=== PATIENT | female | born 1940 | race Caucasian/White ===

== ENCOUNTER → 2016-06-15 | Outpatient (REF) | payer MEDICARE ==
[~2016-06-15] MED LIST: BIMA01SOL OU; CALCTAB41 PO; LISI10TA4 PO
[2016-06-15 18:17] LABS: CALCIUM OXALATE CRYSTALS SMALL
== END ==
LOC: M LAB REF 16:15
PROVIDERS: ATTEND Obstetrics & Gynecology
DX: R39.89 Other symptoms and signs involving the genitourinary system (principal)

== ENCOUNTER → 2016-11-23 | Outpatient (CLI) | payer MEDICARE ==
--- NOTE | 2016-11-23 11:53 | REPMRS ---
Patient History The patient states she had a clinical breast exam in 12/20.Patient is postmenopausal, has history of cancer in the left breast at age 62, and had previous chemotherapy. Family history of colorectal cancer in maternal grandfather at age 50 or over, breast cancer in sister at age 60, breast cancer in maternal grandmother at age 60, prostate cancer in brother at age 50 or over, and breast cancer in paternal uncle at age 60. Malignant excisional biopsy of the left breast, 2003. Radiation therapy of the left breast, 2003. Chemotherapy. Took hormonal contraceptives for 24 years. Took estrogen for 20 years. Took unspecified hormones for 5 years. Digital Mammo Screening Bilat: November 23, 2016 - Exam #: [id number] Bilateral CC and MLO view(s) were taken. Technologist: Tod Englandologist Prior study comparison: November 22, 2015, bilateral digital mammo screening bilat performed at [facility]. November 20, 2014, bilateral digital mammo screening bilat performed at [facility]. FINDINGS: There are scattered fibroglandular densities. There is no evidence of cancer on this mammogram. Large coarse benign appearing calcifications are present. No significant changes when compared with prior studies. ASSESSMENT: BI-RADS/ACR category 2 mammogram. Benign finding(s). Recommendation Routine screening mammogram of both breasts in 1 year (for women over age 40). This mammogram was interpreted with the aid of an FDA-approved computer-aided dectection system. Electronically Signed By: Destin Johnson MD 11/23/16 9568
== END ==
LOC: M RAD 10:14
PROVIDERS: ATTEND Surgery
DX: Z12.31 Encounter for screening mammogram for malignant neoplasm of breast (principal); Z85.3 Personal history of malignant neoplasm of breast; Z78.0 Asymptomatic menopausal state; Z80.3 Family history of malignant neoplasm of breast

== ENCOUNTER → 2017-11-24 | Outpatient (CLI) | payer MEDICARE | LOC: M RAD 08:25 | DX: Z12.31 Encounter for screening mammogram for malignant neoplasm of breast (principal); Z85.3 Personal history of malignant neoplasm of breast; Z80.3 Family history of malignant neoplasm of breast; Z92.3 Personal history of irradiation; Z92.21 Personal history of antineoplastic chemotherapy | CPT/HCPCS: 77067 ==

== ENCOUNTER → 2018-11-29 | Outpatient (CLI) | payer MEDICARE ==
--- NOTE | 2018-11-29 11:48 | REPMRS ---
Patient History The patient states she had a clinical breast exam in December 2017. Patient is postmenopausal, has history of cancer in the left breast at age 62, and had previous chemotherapy. Family history of breast cancer at age 60 in sister, breast cancer at age 60 in maternal grandmother, breast cancer at age 60 in paternal uncle, colorectal cancer at age 50 or over in maternal grandfather, prostate cancer at age 50 or over in brother, breast cancer at age 85 in sister. Malignant excisional biopsy of the left breast, 2004. Radiation therapy of the left breast, 2003. Chemotherapy. Took hormonal contraceptives for 24 years. Took estrogen for 20 years. Took unspecified hormones for 5 years. Digital Mammo Screening Bilat: November 29, 2018 - Exam #: [id number] Bilateral CC and MLO view(s) were taken. Technologist: Callie Almendarez Technologist Prior study comparison: November 24, 2017, bilateral digital mammo screening bilat performed at [facility]. November 23, 2016, bilateral digital mammo screening bilat performed at [facility]. FINDINGS: There are scattered fibroglandular densities. Bilateral screening digital mammogram with tomosynthesis: The patient states that there are no palpable abnormalities or other breast complaints. The patient's Tyrer-Cuzieck Lifetime Breast Carcinoma Risk is: NA There is no interval development of dominant mass, areas of architectural distortion, or clustered microcalcification typical of malignancy. There are benign macrocalcifications bilaterally, unchanged. There are stable postsurgical changes in the left breast. There are no additional findings on tomosynthesis. This mammogram is interpreted with the aid of an FDA approved computer-aided detection system. Not all cancers are identified by mammography. Negative mammogram reports should not delay biopsy if a dominant or clinically suspicious mass is present. Adenosis and dense breasts may obscure an underlying neoplasm. No significant changes when compared with prior studies. Assessment: BI-RADS/ACR category 2 mammogram. Benign Findings. Recommendation Routine screening mammogram in 1 year (for women over age 40). This mammogram was interpreted with the aid of an FDA-approved computer-aided dectection system. A. Negative x-ray reports should not delay biopsy if a dominant or clinically suspicious mass is present. B. Not all cancers are identified by mammography. C. Adenosis and dense breast may obscure an underlying neoplasm. Electronically Signed By: Destin Valencia M.D. 11/29/18 4835
== END ==
LOC: M RAD 09:07
PROVIDERS: ATTEND Surgery
DX: Z12.31 Encounter for screening mammogram for malignant neoplasm of breast (principal); Z85.3 Personal history of malignant neoplasm of breast; Z80.3 Family history of malignant neoplasm of breast; Z80.0 Family history of malignant neoplasm of digestive organs; Z92.21 Personal history of antineoplastic chemotherapy; Z80.42 Family history of malignant neoplasm of prostate

== ENCOUNTER → 2020-03-25 | Outpatient (CLI) | payer MEDICARE ==
--- NOTE | 2020-03-28 16:31 | REP ---
INDICATION: History of left breast cancer with surgical excision, radiation and chemotherapy. Family history of breast cancer in two sisters, maternal grandmother and paternal uncle. COMPARISON: 11/29/2018 as well as other prior exams. TECHNIQUE: Digital screening (2D) mammography was performed bilaterally. Additionally, breast tomosynthesis (3D mammography) was performed bilaterally in the CC and MLO projections and compared to the prior exam(s). FINDINGS: Moderate fibroglandular tissue is again seen bilaterally in a heterogeneous pattern. Volpara breast density is D. There are stable post radiation and post surgical changes in the left breast with no new finding. However, on the right there appears to be a new spiculated nodule in the outer aspect measuring about 1.2 cm in diameter. Coarse benign type calcifications are seen bilaterally. IMPRESSION: BI-RADS Category 0 - incomplete. There appears to be a new spiculated nodule in the outer right breast approximately 1.2 cm in diameter. Recommend spot compression views and ultrasound to further evaluate. This mammogram was read with the assistance of Monitor, an FDA approved computer aided detection system for mammography. Negative x-ray reports should not delay surgical consultation if a dominant or clinically suspicious mass is present. Not all breast cancers can be identified by mammography. Therefore, we recommend that you continue to perform regular breast self-examination and physical examination and then promptly contact your physician of any concerns or changes. Adenosis and dense breasts may obscure an underlying neoplasm. Patient letter 0. <Electronically signed by Destin Johnson > 03/28/20 1501
== END ==
LOC: M WHC 11:24
PROVIDERS: ATTEND Surgery
DX: R92.2 Inconclusive mammogram (principal); N63.10 Unspecified lump in the right breast, unspecified quadrant; N60.11 Diffuse cystic mastopathy of right breast; N60.12 Diffuse cystic mastopathy of left breast; Z85.3 Personal history of malignant neoplasm of breast; Z92.21 Personal history of antineoplastic chemotherapy; Z92.3 Personal history of irradiation; Z80.3 Family history of malignant neoplasm of breast

== ENCOUNTER → 2020-04-02 | Outpatient (CLI) | payer MEDICARE ==
--- NOTE | 2020-04-02 09:52 | REP ---
INDICATION: ADDITIONAL VIEW RT BREAST; ADDITIONAL VIEWS RT BREAST. COMPARISON: Mammogram 03/25/2020, as well as other prior exams. TECHNIQUE: Spot compression views of the right breast are performed. Focused right breast ultrasound performed in the upper-outer quadrant. FINDINGS: Persistent spiculated nodule is again visualized in the upper outer quadrant of the right breast. This measures slightly greater than 1 cm in diameter. The appearance is highly suspicious. Focused ultrasound in the upper-outer quadrant of the right breast demonstrates an irregular spiculated hypoechoic mass with internal blood flow with Doppler evaluation. It is at the 11 o'clock position 2 cm from the nipple. It measures 1.0 x 1.3 x 1.1 cm. IMPRESSION: BIRADS/ACR category 5, findings highly suspicious and consistent with breast cancer. Spiculated nodule seen both mammographically and sonographically in the upper outer quadrant of the right breast. Ultrasound-guided biopsy recommended with postprocedure mammography. This mammogram was interpreted with the aid of an FDA-approved computer-aided detection system. The patient letter being requested is M4. RECOMMENDATION: Spiculated nodule upper-outer quadrant right breast, ultrasound-guided biopsy recommended with postprocedure mammography. <Electronically signed by Destin Johnson > 04/02/20 0949
== END ==
LOC: M WHC 08:12
PROVIDERS: ATTEND Surgery
DX: N63.11 Unspecified lump in the right breast, upper outer quadrant (principal); Z85.3 Personal history of malignant neoplasm of breast

== ENCOUNTER → 2020-05-09 | Outpatient (CLI) | payer MEDICARE ==
[~2020-05-09] MED LIST changes: +METF-877 PO
[2020-05-09 06:50] VITALS: BP 130/68
--- NOTE | 2020-05-09 15:53 | REP ---
INDICATION: N63.11 LUMP R BREAST/CK CLIP PLACEMENT. Status post ultrasound-guided needle biopsy right breast mass. COMPARISON: Comparison mammography April 02, 2020, March 25, 2020, and November 29, 2018. TECHNIQUE: Craniocaudal and true mediolateral views of the right breast are obtained. FINDINGS: Two views right breast demonstrates a needle biopsy marker clip in excellent position centrally located within these small spiculated nodule in the upper outer quadrant of the right breast. No evidence of hematoma. The Volpara volumetric breast density pattern is C. IMPRESSION: Needle biopsy marker clip is in good position. This mammogram was interpreted with the aid of an FDA-approved computer-aided detection system. RECOMMENDATION: Treatment as needed regarding the biopsy results. <Electronically signed by Salomón Patino > 05/09/20 [id number]
--- NOTE | 2020-05-10 11:04 | REP ---
INDICATION: N63.11 LUMP R BREAST/US GUIDED BX. COMPARISON: None. TECHNIQUE: The procedure was performed by Nanda Chirinos [facility], under the direct supervision of Dr. Patino. The risks and benefits of the procedure were explained to the patient and an informed consent was obtained both verbally and written. Directly prior to the start of the procedure a formal time-out was completed in the procedure room. FINDINGS: Using ultrasound guidance the right breast mass was localized. The skin was prepped and draped in a sterile fashion. Ten mL of buffered lidocaine was used as a local anesthetic. Using ultrasound guidance a 14 gauge Bard Marquee coaxial needle biopsy system was inserted and advanced into the right breast mass. Five core biopsy specimens were obtained and sent to pathology for further analysis. A marker clip was placed at the biopsy site. The patient tolerated the procedure well and there were no immediate complications. After the appropriate amount of monitored convalescence the patient was discharged from the department. IMPRESSION: 1. Ultrasound-guided right breast biopsy. <Electronically signed by Nanda Chirinos > 05/10/20 0820 <Electronically signed by Salomón Patino > 05/10/20 1100
== END ==
LOC: M WHCPRO 14:04
PROVIDERS: ATTEND Surgery
DX: D05.11 Intraductal carcinoma in situ of right breast (principal)

== ENCOUNTER → 2020-05-22 | Outpatient (CLI) | payer MEDICARE | LOC: M LABSMTC 10:06 | PROVIDERS: ATTEND Anesthesiology | DX: Z01.812 Encounter for preprocedural laboratory examination (principal); Z20.828 Contact with and (suspected) exposure to other viral communicable diseases ==

== ENCOUNTER 2020-05-27 07:05 | Day surgery (SDC) | payer MEDICARE ==
[~2020-05-27] VITALS: Ht 162.6 cm; Wt 65.3 kg
[2020-05-27] MEDS ORDERED: LR 1,000 ML IV ONE (07:30)
[2020-05-27] MEDS ORDERED: EMLA CREAM 5GM TUBE (LIDOCAINE/PRILOCAINE) TOP ONE (07:30)
[2020-05-27] MEDS ORDERED: ONDANSETRON 4MG/2ML VIAL As Ordered ONE (10:38)
[2020-05-27] MEDS ORDERED: dexameTHASONE 4 MG/ML 1ML VIAL (J1100 PER 1MG) As Ordered ONE (10:38)
[2020-05-27] MEDS ORDERED: ROCURONIUM BROMIDE 50 MG/5 ML VIAL As Ordered ONE (10:38)
[2020-05-27] MEDS ORDERED: fentaNYL 100 MCG/2 ML INJECTION (J3010) As Ordered ONE ×3 (10:39→14:50)
[2020-05-27] MEDS ORDERED: MIDAZOLAM INJ 2MG/2ML VIAL (J2250 PER 1MG) As Ordered ONE (10:39)
[2020-05-27] MEDS ORDERED: propofoL 200 MG/20 ML VIAL As Ordered ONE (10:39)
[2020-05-27] MEDS ORDERED: LIDOCAINE 2% 100MG/5ML SDV (FOR ANES.) As Ordered ONE (10:39)
[2020-05-27] MEDS ORDERED: METHYLENE BLUE 0.5% (5MG/ML) 10 ML AMP (PROVAYBLUE) As Ordered ONE (10:47)
[2020-05-27] MEDS ORDERED: ACETAMINOPHEN 1000MG 100ML IV BTL (OFIRMEV) (J0131 PER 10MG) As Ordered ONE (11:41)
[2020-05-27] MEDS ORDERED: SUGAMMADEX SODIUM 500 MG/5 ML VIAL (BRIDION) As Ordered ONE (11:43)
[2020-05-27] MEDS ORDERED: METOCLOPRAMIDE INJ 10MG/2ML VIAL (J2765 PER 1) As Ordered ONE (11:59)
--- NOTE | 2020-05-27 12:52 | REP ---
INDICATION: CA R BREAST. COMPARISON: None. TECHNIQUE/RADIOTRACER AND DOSE: This procedure was performed by Nanda Chirinos [facility], under the direct supervision of Dr. Johnson. Images were reviewed with Dr. Johnson prior to dictation. The risks and benefits of the procedure were explained to the patient and informed consent was obtained both orally and written. Directly prior to the start of the procedure, a formal timeout was done in the exam room. Using topical anesthetic and sterile technique 0.983 mCi of filtered Technetium-99m sulfur colloid was injected subdermally in 8 fractionated periareolar injections. FINDINGS: Images obtained 1 hour after injection show a dominant right axillary focus. IMPRESSION: Images obtained 1 hour after injection show a dominant right axillary focus. <Electronically signed by Nanda Chirinos > 05/27/20 1112 <Electronically signed by Destin Johnson > 05/27/20 1249
[2020-05-27] MEDS ORDERED: BUPIVACAINE HCL 0.25% 30ML VIAL As Ordered ONE (13:17)
[2020-05-27] MEDS ORDERED: KETOROLAC 60MG 2ML VIAL As Ordered ONE (14:51)
[2020-05-27] MEDS ORDERED: PHENYLephrine HCL 500 MCG/5 ML (100MCG/ML) SYRINGE (J2370) As Ordered ONE (15:08)
[2020-05-27] MEDS ORDERED: LR 1,000 ML IV SCH (15:45)
[2020-05-27] MEDS ORDERED: oxyCODONE 5MG TAB PO PRN (15:45)
[2020-05-27] MEDS ORDERED: fentaNYL 100 MCG/2 ML INJECTION (J3010) IV PRN (15:45)
[2020-05-27] MEDS ORDERED: ONDANSETRON 4MG/2ML VIAL IV PRN (15:45)
[2020-05-27] MEDS ORDERED: HYDROMORPHONE HCL 0.5 MG/ 0.5 ML SYRINGE (J1170 PER 1) IV PRN (15:45)
[2020-05-27] MEDS ORDERED: ACETAMINOPHEN TAB 650MG DOSE (2X325MG) PO PRN (16:00)
[2020-05-27] MEDS ORDERED: ACETAMINOPH W/CODEINE #3 TAB UD PO PRN (16:15)
--- NOTE | 2020-05-27 16:45 | REP ---
INDICATION: RIGHT BREASE GUIDEWIRE PLACEMENT. COMPARISON: Mammogram 03/25/2020, 04/02/2020, 05/09/2020, ultrasound 04/02/2020. TECHNIQUE: Ultrasound guidance was provided for Dr. GROVER, who performed needle localization of the previously biopsied nodule in the upper outer quadrant of the right breast, containing a HydroMARK clip. FINDINGS: The localization needle is seen within the nodule. IMPRESSION: Successful needle localization of right breast nodule.Ultrasound guidance was provided for Dr. GROVER who performed the procedure. <Electronically signed by Destin Johnson > 05/27/20 2761
[2020-05-27 17:10] VITALS: BP 142/62
--- NOTE | 2020-06-01 21:22 | RO ---
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 PROCEDURE PERFORMED: 1. Ultrasound guided needle location needle localization of right breast cancer. 2. Right breast/axillary sentinel lymph node biopsy. 3. Right partial mastectomy. SURGEON: Dilip Gee MD ANESTHESIA: General. INDICATIONS FOR THE PROCEDURE: The patient is an 79-year-old woman with a past history of breast cancer on the left many years ago. She recently was found on mammogram to have a small nodule in the upper outer quadrant of the right breast. This was confirmed by ultrasound and an ultrasound guided biopsy confirmed infiltrating ductal carcinoma. She is now for a needle localization of the tumor with sentinel biopsy and partial mastectomy. OPERATIVE PROCEDURE: The patient was initially sent to the x-ray department where she underwent lymph node scintigraphy, which identified an area of uptake in the axilla. She was brought to the operating room and placed under general endotracheal anesthesia. She was placed in a supine position. The skin of the areolar area was prepped with alcohol; and using ultrasound guidance, a needle with a hook wire was inserted in the upper, outer quadrant of the breast and the needle was directed through the tumor and the hook wire was then deployed. The patient's right breast chest wall, axilla and upper arm were then prepped and draped in a sterile fashion. Initially, the axilla was examined using the Neoprobe and a fairly broad area of activity was identified in the mid to upper axilla. This was over an area about 3 cm in diameter. An approximately 3 cm transverse skin incision was made over this. The incision was deepened through the subcutaneous tissues. The axillary fascia was opened and then guided by the Neoprobe. Dissection was deepened into the axillary tissues. A hot spot was identified with the Neoprobe and this was dissected free. This was a small node with some surrounding fibrofatty tissue. A 10 second count of the gamma activity was 4,257. This was sent to the pathology lab for frozen section as sentinel #1. Reexamination showed another hot spot slightly higher up in the axilla, which appeared to be even more intense than the initial site had been. With further dissection, a somewhat lobulated portion of fibrofatty tissue was removed. This may have contained more than 1 lymph node. The hot spot had a 10 second gamma count of 19,772. This was sent as sentinel lymph node #2. There was no other activity identified within the axilla of significance. Background 10 second count was 74. The axillary wound was irrigated and inspected and hemostasis was excellent. I then closed the level of the axillary fascia with buried 3-0 chromic sutures. As I was closing the skin incision with buried 4-0 Vicryl, the pathologist contacted me. The first node was negative for malignancy, but the second node, which had the higher count was actually positive for metastatic cancer. I elected not to resect any additional lymph nodes. I completed the closure of the skin incision in the axilla with 4-0 Vicryl. Attention was then turned to the breast. The localizing wire entered the breast at about the 10:30 position about 2 cm above the areolar. A obliquely oriented batwing type incision was made curving around the edge of the areolar from about the 9 o'clock position to the midnight position and an elliptical excision was then performed using primarily cautery dissection. Dissection was guided by feel. At the lower inner aspect of the dissection, which extended posterior to the areolar. It was an area where I was concerned that I may have exposed tumor on the inferior margin of the specimen. I marked this site with a suture on the inferior edge and then excised an additional rim of the surrounding breast tissue, still attached to the larger specimen posteriorly as a flap. This was all freed from the deep margin. The resulting specimen was approximately 6 to 7 cm in length by 4 to 5 cm in width by 3 cm in thickness. The small flap of tissue on the inferior medial aspect was tacked to the edge of the specimen with a single chromic suture anteriorly. The specimen was then marked using the [employer] MarginMarker system. I also contacted the pathologist after sending the specimen to indicate to her the concern about the inferior margin and how I had addressed that. The wound was irrigated and hemostasis was obtained with the cautery. In order to try to close the defect, I freed the superior and lateral breast tissues from the underlying pectoralis muscle with the attached fascia so that I could advance this tissue into the wound. I also freed the skin of the areolar and periareolar area off of the underlying breast tissue on the inferior and medial portion of the breast to allow this tissue to set over the underlying advanced tissue. The breast tissue was then approximated with interrupted sutures of 2-0 Vicryl. The skin edges were then brought together by some buried 3-0 Vicryl. The corners of the batwing type excision were tailored slightly and closed also. The entire incision was then closed with a running suture of 4-0. Some 25% Marcaine was infiltrated around both of the incisions and into the underlying breast tissue. Steri-Strips were applied. The patient tolerated the procedure well without apparent complication. Several fluff gauzes were placed over the axillary wound and a bulk gauge bandage was applied over the axilla and the breast. This was all held in place with tape. The patient tolerated the procedure well without apparent complication. She was awakened in the operating room, extubated and moved to the recovery room in stable condition.
--- NOTE | 2020-06-03 09:08 | REP ---
INDICATION: RIGHT BREAST SENTINAL NODE BIOPSY. Status post ultrasound guided needle localization excisional biopsy right breast. COMPARISON: Comparison mammography May 09, 2020 and March 25, 2020.. TECHNIQUE: Single specimen radiograph. FINDINGS: SPECT radiograph demonstrates a Norman needle a wire localization device centrally located in the specimen. A needle biopsy marker clip is located centrally in the specimen. There are no visible microcalcifications. IMPRESSION: Specimen radiograph demonstrates the previously placed needle biopsy marker clip and the localizer wire. <Electronically signed by Salomón Pation > 06/03/20 0907
--- NOTE | 2020-06-03 11:39 | RO ---
OPERATIVE NOTE DATE OF OPERATION: 05/27/2020 PREOPERATIVE DIAGNOSIS: Epigastric and umbilical hernia. POSTOPERATIVE DIAGNOSIS: Epigastric and umbilical hernia. PROCEDURE PERFORMED: Robotic assisted laparoscopic repair of epigastric and umbilical hernias with Parietex mesh. SURGEON: Dilip Gee MD ANESTHESIA: General. INDICATIONS FOR THE PROCEDURE: The patient is a 44-year-old man, who had noted a small bulge above the umbilicus. Examination confirmed an epigastric hernia just above the umbilicus as well as a small umbilical hernia. He is now for repair of both hernias as a robotic assisted hernia repair. OPERATIVE PROCEDURE: The patient was brought to the operating room and placed on the table in a supine position. He was placed under general endotracheal anesthesia. The patient's abdomen was prepped and draped in a sterile fashion. 25% Marcaine was infiltrated at each of the trocar sites as needed. A short transverse incision was made in the far left lateral abdomen at about the level of the umbilicus. The Veress needle was inserted and after positive hanging drop test the abdomen was inflated with carbon dioxide gas. After the abdomen was inflated, an 8 mm port was placed over 5 mm scope and advanced through the abdominal wall without difficulty. Initial examination showed no evidence of trocar or Veress needle injury. The patient was noted to have two small hernia defects anteriorly, one at the umbilicus and one just above. A second 8 mm port was placed in the left upper quadrant and a third was placed in the left lower quadrant. The patient was rolled slightly to the right and placed in a slight Trendelenburg position. The patient cart of the da Yudith XI robot was brought into position and the endoscope port was docked to the middle port. Targeting took place on the anterior abdominal wall and the remaining ports were then docked to the appropriate arms. Cauterizing scissors and a fenestrated bipolar grasper were inserted. I then moved to the control console to proceed with the robotic portion of the procedure. Inspection of the anterior abdominal wall revealed a small area of preperitoneal fat extended down the midline. He was noted to have the two distinct hernial defects as initially reported. A peritoneal flap was then begun at the lateral extent to the left of the preperitoneal fat. The peritoneum was scored and the peritoneum with the preperitoneal fat was then carefully peeled away from the overlying fascia and freed extending to the right. As the hernial defects were identified, the peritoneum was freed and reduced back into the abdomen with some herniated preperitoneal fat as well. The dissection was then carried across an additional 3 to 4 cm to the right of the midline. The dissection was carried superiorly and inferiorly slightly to ensure that there were no other defects. Each of the defects was approximately 1 to 1.5 cm in size in size. A 1.0 STRATAFIX suture was then inserted and this was used to suture the defects closed in a longitudinal fashion. There was an approximately 1 cm bridge between the two openings, which was also invaginated beneath this suture line. The intraabdominal pressure was reduced to approximately 10 mmHg to allow this closure to be performed more readily. A 9 cm round Parietex patch was then selected. Initially 1 cm was shaved off of each side of the mesh to create a roughly 7 x 9 cm patch and this was then inserted into the abdomen and placed into the preperitoneal space. It was slightly too long and slightly too wide for this space, so using the scissors, I trimmed an approximately cm off the lateral and inferior margin and this fit very n ice into the preperitoneal space. This was then sutured across the midline of the mesh, transversely with a absorbable 2-0 V-Loc suture and the suture was then carried circumferentially around the mesh and then also down to the longitudinal midline of the mesh using an additional suture. This nicely positioned the mesh to cover both of the defects very nicely with a wide overlap. The peritoneal flap was then closed with a running suture of absorbable 2-0 V-Loc. Final inspection showed an excellent closure with no exposed mesh. The patient cart was un-docked from the trocars and withdrawn. The abdomen was deflated and the trocars were removed. I then proceeded to close the skin incisions with buried 4-0 Vicryl sutures and Steri-Strips. The patient tolerated the procedure well without apparent complication. The mesh utilized was a 9 cm round Parietex patch, reference code PC09X and lot number [id number]. He was awakened in the operating room extubated and moved to the recovery room in stable condition.
== END 2020-05-27 17:10 | disposition home or self-care (01) ==
LOC: M SDC 07:05
PROVIDERS: ATTEND Surgery
DX: C50.411 Malignant neoplasm of upper-outer quadrant of right female breast (principal); C77.3 Secondary and unspecified malignant neoplasm of axilla and upper limb lymph nodes; Z17.0 Estrogen receptor positive status [ER+]; I10 Essential (primary) hypertension; E11.9 Type 2 diabetes mellitus without complications; Z79.84 Long term (current) use of oral hypoglycemic drugs; Z79.899 Other long term (current) drug therapy; Z88.2 Allergy status to sulfonamides; Z88.8 Allergy status to other drugs, medicaments and biological substances; Z92.3 Personal history of irradiation; Z92.21 Personal history of antineoplastic chemotherapy
CPT/HCPCS: 19125; 38525; 76942; 78195; 88307; 88331; A9541; J0131; J1100; J1885; J2250; J2370; J2405; J2765; J3010; Q9968

== ENCOUNTER → 2020-06-26 | Outpatient (CLI) | payer MEDICARE ==
[~2020-06-26] MED LIST changes: +LISI10TA22 PO; -LISI10TA4 PO
--- NOTE | 2020-06-26 15:13 | RADONC.CN ---
Radiation Oncology Hx/Consult Radiation Oncology Consult Date of Service: Jun 26, 2020 Pt Identifier Fanny Parker is a 79 year old female with a history of left breast cancer in 2003 treated with lumpectomy, ALND, and adjuvant chemotherapy and radiation 48.6 Gy to the right whole breast and an additional 12 Gy in 6 fractions to the tumor bed completed 05/23/04. She then took an AI for 5 years. She now has a right breast cancer [id number] ER/MI+ HER2- Grade 2 IDC s/p lumpectomy and SLNB on 05/27/[address] Gee. She is seen today for consideration of adjuvant rad iation. Diagnosis/Treatment History Oncologic History Left breast cancer 2003: [id number] ER/MI+ HER2- Grade 3 s/p Lumpectomy and ALND chemotherapy, RT, and endocrine therapy for 5 years Right breast cancer 2020: 03/25/20 mammogram Spiculated nodule in the right outer breast 05/10/20 Biopsy IDS grade 2 ER/MI+ HER2- 05/27/20 Lumpectomy and SLNB (Gerard) [id number] margins negative NALLELY+ Interval History Here with her daughter. Feels well. Had some left breast tenderness, now resolved. No additional complaints. Appetite and energy levels good. Getting COVID vaccine on 07/20/20 Past Medical History: Colon polyps DMII Endometriosis Arthritis Breast History: Menopause @ 43 No OCP No HRT Past Surgical History: Bladder sling Appendectomy Cataracts Cholecystectomy YUN/BSO Family History: Strong family history of breast cancer 2 affected sisters 1 affected maternal uncle Maternal grandmother Prior genetic testing negative for known variants Social History: Never smoker Occasional drinker Allergies / Meds Allergies: Coded Allergies: TAPE (Verified Allergy, Intermediate, REDNESS AND RASH, 05/22/20) sulfamethoxazole (Verified Allergy, Unknown, rash, 05/22/20) trimethoprim (Verified Allergy, Unknown, rash, 05/22/20) Home Meds Reported Medications Metformin HCl (Metformin HCl) 1,000 Mg Tablet, 500 MG PO BID, TAB 05/22/20 Lisinopril (Lisinopril) 10 Mg Tab, 15 MG PO DAILY, TAB 06/24/15 Bimatoprost (Lumigan) 50 Drop/2.5 Ml Marly, 1 DROP OU QHS, MARLY 06/24/15 Calcium Carbonate/Vitamin D3 (Calcium 500-Vit D3 400 Tablet) 1 Tab Tab, 1 TAB PO BID, TAB 06/24/15 Review of Systems Constitutional: Denies: Chills, Fever, Night Sweats Eyes: Denies: Pain, Vision change HEENT: Denies: Head Aches, Dysphagia, Sore Throat Skin: Denies: Rash, Lesions, Bruising Pulmonary: Denies: Dyspnea, Cough Cardiovascular: Denies: Chest Pain, Palpitations, Edema Breast: Denies: New Breast Lumps / Masses, Nipple Retraction, Nipple Discharge, Breast Skin Changes, Breast Pain or Tenderness, Other Breast Complaints Gastrointestinal: Denies: Nausea, Vomiting, Abdominal Pain, Diarrhea Genitourinary: Denies: Dysuria, Frequency, Incontinence Hematologic: Denies: Bruising, Petecchia, Enlarged Lymph Nodes Musculoskeletal: Denies: Neck pain, Back pain Neurological: Denies: Weakness, Numbness, Incoordination Psych: Reports: Mood Normal; Denies: Memory Issues, Thoughts of Self Harm Vital Signs Ht 62" Wt 146 lb BMI 27 T 97.8 P 89 RR 16 BP 167/71 O2 97% Pain 0 Fatigue 0 General Exam: Positive: Alert, Cooperative, No Acute Distress Eye Exam: Positive: PERRLA, EOMI ENT EXAM: Positive: Mucous membr. moist/pink, Pharynx Normal Neck Exam: Negative: Thyromegaly, Lymphadenopathy Chest Exam: Positive: Normal air movement; Negative: Rales, Rhonchi, Wheezing Heart Exam: Positive: Rate Normal, Regular Rhythm Breast Exam: Negative: Symmetric Bilaterally (Ptotic L>R), Lumps or Masses (Palpable surgical site central left breast), Nipple Retraction, Nipple Discharge, Skin Changes (Prior RT tattoos, no chronic skin chages on right side) Abdomen Exam: Positive: Soft; Negative: Tenderness Extremity Exam: Negative: Edema, Tenderness Skin Exam: Positive: Nl turgor and temperature; Negative: Rash Neuro Exam: Positive: Normal Gait, Normal Speech, Cranial Nerves 3-12 NL Psych Exam: Positive: Mental status NL, Mood NL, Memory Intact Diagnostic and Laboratory Diagnostic Review Radiologic images, relevant labs and pathology reports were personally reviewed and discussed with Ms. Parker. Assessment and Plan Impression Ms. Parker is a 79 year old female with a history of left breast cancer in 2003 treated with lumpectomy, ALND, and adjuvant chemotherapy and radiation 48.6 Gy to the right whole breast and an additional 12 Gy in 6 fractions to the tumor bed completed 05/23/04. She then took an AI for 5 years. She now has a right breast cancer [id number] ER/MI+ HER2- Grade 2 IDC s/p lumpectomy and SLNB on 05/27/[address] Gee. She is seen today for consideration of adjuvant radiation. Stage Right breast IDC Stage IA [id number] ER/MI+ HER2- Grade 2 Performance Status ECOG 0 Plan We had an extensive discussion with Ms. Parker regarding the diagnosis at hand and available therapeutic options. She is fit for her age and has healed well from her surgeries. She meets ACOSOG Z0011 criteria for whole breast RT. I recommend 40 Gy in 15 fractions to the right whole breast and an additional 10 Gy in 5 fractions to the tumor bed. Given there was NALLELY present in the excised positive LN will cover the site of the SLNB with the whole breast field as a prophylactic measure. We discussed the alternative of omission of RT given age and receptor status but neither she, nor I are in favor of this. We discussed the logistics of receiving radiation therapy in detail including the need for a 1-time planning session. She will be treated supine. We reviewed the side effects of treatment including fatigue, skin reaction and late fibrosis. After discussing the risks, benefits and alternatives to radiation therapy, Ms. Parker was amenable to pursuing radiotherapy. All questions were answered to the patient's satisfaction. We instructed the patient that if there were any questions,concerns or changes in clinical status in the interim to contact us. Recommendations Whole breast RT 40 Gy in 15 fractions + 10 Gy in 5 fractions to the tumor bed Will cover the SLNB site in the whole breast field due to NALLELY+ SLN Simulation 07/02/20 AI to follow per TRAVIS Sawyer MD Jun 26, 2020 15:13
== END ==
LOC: M ONCR 13:01
PROVIDERS: ATTEND General Practice
DX: C50.912 Malignant neoplasm of unspecified site of left female breast (principal)

== ENCOUNTER 2020-07-02 10:55 | Outpatient (RCR) | payer MEDICARE ==
[~2020-07-02 10:55] MED LIST changes: -LISI10TA22 PO; +LISI10TA4 PO
== END 2020-07-07 ==
LOC: M ONCR 10:55
PROVIDERS: ATTEND General Practice
DX: C50.111 Malignant neoplasm of central portion of right female breast (principal)

== ENCOUNTER → 2020-07-02 | Outpatient (CLI) | payer MEDICARE ==
--- NOTE | 2020-07-02 16:23 | DEXAMM ---
INDICATION: HX BREAST CA ON ARMOTASE INHIBTORS. COMPARISON: Comparison studies include the most recent study of February 20, 2009 and the most remote August 23, 2001.. TECHNIQUE: Bone density was measured using dual-energy x-ray absorptionmetry (DEXA). FINDINGS: AP SPINE L1-L4 BMD 0.878 g/cm2 Young Adult T-Score -2.6 Age Matched Z-Score -0.7. LT FEMUR, TOTAL BMD 0.778 g/cm2 Young Adult T-Score -1.8 Age Matched Z-Score 0.2. LT NECK BMD 0.723 g/cm2 Young Adult T-Score -2.3 Age Matched Z-Score -0.1. RT FEMUR, TOTAL BMD 0.794 g/cm2 Young Adult T-Score -1.7 Age Matched Z-Score 0.3. RT NECK BMD 0.745 g/cm2 Young Adult T-Score -2.1 Age Matched Z-Score 0.1. IMPRESSION: There is osteoporosis of the spine. There is low bone density of the left hip. There is low bone density of the right hip. The density of the spine has decreased 19.3% since the initial exam on August 23, 2001. The density of the spine decreased 9.3% since most recent exam on February 20, 2009. The density of the left hip has decreased 31.7% since initial exam on August 23, 2001. The density of the left hip has decreased 26.4% since most recent exam on February 20, 2009. The density of the right hip has decreased 28.3% since the initial exam on August 23, 2001. The density of the right hip has decreased 23.7% since the most recent exam on August 20, 2008. FOLLOW-UP: Recommendation for the next bone density exam: 2 years. <Electronically signed by Salomón Patino > 07/02/20 [id number]
== END ==
LOC: M WHC 13:06
PROVIDERS: ATTEND Specialist
DX: C50.919 Malignant neoplasm of unspecified site of unspecified female breast (principal); Z79.811 Long term (current) use of aromatase inhibitors

== ENCOUNTER 2020-08-02 11:13 | Outpatient (RCR) | payer MEDICARE ==
[~2020-08-02 11:13] MED LIST changes: +LETR2.5T2 PO; +LISI10TA22 PO; -LISI10TA4 PO
== END 2020-08-04 ==
LOC: M ONCR 11:13
PROVIDERS: ATTEND General Practice
DX: C50.111 Malignant neoplasm of central portion of right female breast (principal)

== ENCOUNTER 2020-08-06 11:12 | Outpatient (RCR) | payer MEDICARE | END 2020-09-04 | LOC: M ONCR 11:12 | PROVIDERS: ATTEND General Practice | DX: C50.111 Malignant neoplasm of central portion of right female breast (principal) ==